=== PATIENT | female | born 1965 | race Caucasian/White ===

== ENCOUNTER 2018-08-24 15:29 | Emergency (ER) | payer OTHER ==
[2018-08-24 15:44] VITALS: BP 147/68; PULSE 69; TEMP 97.6; BMI 23.1
[2018-08-24] MEDS ORDERED: ACETAMINOPHEN 500 MG TABLET (FP) PO ONE (16:03)
[2018-08-24] MEDS ORDERED: ACETAMINOPHEN 325 MG TABLET (FP) ONE (16:05)
[2018-08-24] MEDS ORDERED: CYCLOBENZAPRINE HCL 10 MG TABLET (FP) ONE (16:06)
[2018-08-24] MEDS ORDERED: CYCLOBENZAPRINE HCL 5 MG TABLET PO SCH (16:15)
--- NOTE | 2018-08-24 17:38 | PDOC ---
Documentation entered by Eyal Mallory SCRIBE, acting as scribe for Joaquin Daly MD. Joaquin Daly MD: This documentation has been prepared by the edsoneMohamud Aiswarya, SCRIBE, under my direction and personally reviewed by me in its entirety. I confirm that the documentation accurately reflects all work, treatment, procedures, and medical decision making performed by me. History of Present Illness - General Chief Complaint: Back Pain Stated Complaint: LOW BACK PAIN Time Seen by Provider: 08/24/18 15:49 History Source: Patient Exam Limitations: No Limitations - History of Present Illness Initial Comments: 08/24/18 16:33 The patient is a 53 year old female, with no significant PMH, who presents to the emergency department for evaluation of back pain that began today. The patient states she was cleaning her house when she bent over and had pain in her back. The pain is worse in the left lower back and mildly in the R, no radaition down the legs. She reports she endorses associated symptoms of muscle spasms and no relief with Advil. The patient reports pain is exacerbated with movement and alleviated when sitting down. Standing straight or lying down makes it worse. Denies any waekness, urinary or bowel incontinence, numbness or tingling. Denies any other trauma. Denies bleeding. Denies chest pain, shortness of breath. Pt has a hx of back spasms n the remote past but non recently. Allergies: Penicillin Past surgical history: None reported Social history: None reported PCP:Cabrera Alva Past History - Past Medical History Allergies/Adverse Reactions: Allergies Allergy/AdvReac Type Severity Reaction Status Date / Time azithromycin Allergy Mild Hives Verified 08/24/18 15:31 Penicillins Allergy Mild Hives Verified 08/24/18 15:31 Home Medications: Ambulatory Orders Cyclobenzaprine HCl [Flexeril 10 mg] 10 mg PO BID PRN #20 tablet 08/24/18 Ibuprofen [Advil -] 400 mg PO ONCE 08/24/18 COPD: No - Suicide/Smoking/Psychosocial Hx Smoking History: Never smoked Hx Alcohol Use: Yes (OCCASIONAL) Drug/Substance Use Hx: No Review of Systems - Review of Systems Able to Perform ROS?: Yes Comments:: 08/24/18 16:33 Constitutional - Pt denies Fever, Chills, weakness, Musculoskeletal - +back pain, denies joint swelling skin - denies bruising, erythema, rash : Denies urinary or bowel incontinence neurological: denies headache, numbness, focal weakness, tingling, ataxia, weakness hematologic: denies anemia, easy bruising, easy bleeding *Physical Exam - Vital Signs Last Vital Signs Temp Pulse Resp BP Pulse Ox 97.6 F 69 16 147/68 100 08/24/18 15:30 08/24/18 15:30 08/24/18 15:30 08/24/18 15:30 08/24/18 15:30 - Physical Exam Comments: 08/24/18 16:36 GENERAL: The patient is awake, alert, and fully oriented, Nontoxic - in no acute distress. HEAD: Normocephalic, atraumatic. BACK:+No midline tenderness on palpation to the cervical, thoracic, lumbar region. Mild paraspinal tenderness bilaterally. No fluctuance, induration or erythema SKIN: Warm, Dry, normal turgor, no rashes or lesions noted. Neuro: normal gait ED Treatment Course - Medications Given in the ED: ED Medications Discontinued Medications Generic Name Dose Route Start Last Admin Trade Name Freq PRN Reason Stop Dose Admin Acetaminophen 650 mg 08/24/18 16:03 08/24/18 16:07 Tylenol - PO 08/24/18 16:04 650 mg ONCE ONE Administration Medical Decision Making - Medical Decision Making 08/24/18 16:30 53y F presenting with atraumatic LBP without red flags normal exam with reproducbile ttp to lower back. no focal bony ttp motrin/flexeril/tylenol return precaautions were discussed pt ambulatng around normally inthe ED PMD fu *DC/Admit/Observation/Transfer Diagnosis at time of Disposition: Low back strain Qualifiers: Encounter type: initial encounter Qualified Code(s): S39.012A - Strain of muscle, fascia and tendon of lower back, initial encounter - Discharge Dispostion Disposition: HOME Condition at time of disposition: Good Decision to Admit order: No - Prescriptions Prescriptions: Cyclobenzaprine HCl [Flexeril 10 mg] 10 mg PO BID PRN #20 tablet PRN Reason: Back Pain - Referrals Referrals: Cabrera Alva MD [Primary Care Provider] - - Patient Instructions Printed Discharge Instructions: DI for Low Back Pain Additional Instructions: Return to the emergency department immediately with ANY new, persistent or worsening symptoms including numbness, tingling, weakness, fevers or any other concerns. Take ibuprofen (400mg)/tylenol(650mg) every 6 hours for 2 days. Take the flexeril 10mg twice daily if you still have pain/discomfort. Caution in using flexeril as it may make you sleepy. Do not drive or put yourself in any position where you would be in danger. Apply heat to your sore muscles. You MUST call and follow up with your doctor in 3-4 days for further evaluation of your symptoms. Your emergency department visit is not complete without a followup with your doctor for reevaluation.. Results were discussed with you. Please make sure your doctor reviews the results of your emergency evaluation. Print Language: ICELANDIC - Post Discharge Activity Forms/Work/School Notes: Back to Work
== END 2018-08-24 16:37 | disposition home or self-care (01) ==
LOC: FER 15:29
DX: S39.012A Strain of muscle, fascia and tendon of lower back, initial encounter (principal); X50.0XXA Overexertion from strenuous movement or load, initial encounter; Y93.89 Activity, other specified; Y92.9 Unspecified place or not applicable; Z88.0 Allergy status to penicillin; Z88.1 Allergy status to other antibiotic agents
CPT/HCPCS: 99282-25